=== PATIENT | female | born 1950 | race African-American/Black ===

== ENCOUNTER 2022-08-13 04:25 | Day surgery (SDC) | payer OTHER ==
[2022-08-11 14:49] VITALS: BMI 38.2
[2022-08-13 09:59] VITALS: TEMP 97.5
[2022-08-13 10:54] VITALS: BP 156/85; PULSE 63; RESP 20
== END 2022-08-13 10:40 | disposition home or self-care (01) ==
LOC: JASU-ENDO 04:25
PROVIDERS: ATTEND Internal Medicine Gastroenterology
PROC: 0DBL8ZX Excision of Transverse Colon, Via Natural or Artificial Opening Endoscopic, Diagnostic (ICD-10-PCS; 2022-08-13)
PROC: 0DBM8ZX Excision of Descending Colon, Via Natural or Artificial Opening Endoscopic, Diagnostic (ICD-10-PCS; 2022-08-13)
PROC: 0DBK8ZX Excision of Ascending Colon, Via Natural or Artificial Opening Endoscopic, Diagnostic (ICD-10-PCS; principal; 2022-08-13 09:00)
DX: Z12.11 Encounter for screening for malignant neoplasm of colon (principal); D12.2 Benign neoplasm of ascending colon; D12.3 Benign neoplasm of transverse colon; D12.4 Benign neoplasm of descending colon; K64.8 Other hemorrhoids; Z83.71 Family history of colonic polyps
CPT/HCPCS: 88305-TC